=== PATIENT | female | born 1995 | race Caucasian/White ===

== ENCOUNTER 2016-09-22 10:06 | Emergency (ER) | payer OTHER ==
[2016-09-22] MEDS ORDERED: HYDROmorphone 1 MG/ML Syringe IM ONE (11:21)
[2016-09-22] MEDS ORDERED: Ondansetron 4 MG Tab.DIS PO ONE (12:03)
--- NOTE | 2016-09-22 12:27 | EDM.PDOC ---
[id number]: OVARIAN CYST? Time Seen by Provider: 09/22/16 10:30 Source of Information: Reports: Patient, Family History Limitations: Reports: No Limitations - History of Present Illness INITIAL COMMENTS - FREE TEXT/NARRATIVE: 20-year-old female with sudden onset of right lower quadrant pain within the last 2-3 hours. Seems to be settling down now. She has a history of ovarian cysts, pain feel similar to past episodes. No fevers or chills. Some nausea, no radiation of pain. She's been on control for the last 3 years to suppress ovarian cysts but was off the pills for about 6 months prior to starting in 2 months ago. She does not feel she is . Onset: Sudden Duration: Hour(s): (Symptoms for the past 1-2 hours) Location: Reports: Abdomen Quality: Reports: Sharp, Stabbing Severity: Moderate Associated Symptoms: Denies: Fever/Chills, Shortness of Breath Right Lower Abdominal Pain Score (Numeric/FACES): 3 - Related Data Allergies Allergy/AdvReac Type Severity Reaction Status Date / Time No Known Allergies Allergy Verified 09/22/16 10:24 Home Meds: Home Meds Norgestimate-Ethinyl Estradiol [Estarylla 0.25-0.035 mg Tablet] 1 tab PO DAILY 09/22/16 [History] Past Medical History Other OB/BYN History: REMOVAL OF CYST FROM [place] [facility]UBE - Past Surgical History HEENT Surgical History: Reports: Oral Surgery Social & Family History - Tobacco Use Smoking Status *Q: Unknown Ever Smoked ED ROS GENERAL - Review of Systems Review Of Systems: See Below Constitutional: Denies: Fever, Chills, Malaise HEENT: Reports: No Symptoms Respiratory: Denies: Shortness of Breath Cardiovascular: Denies: Chest Pain GI/Abdominal: Reports: Abdominal Pain, Nausea. Denies: Diarrhea, Vomiting Skin: Reports: No Symptoms Neurological: Reports: No Symptoms ED EXAM, GI/ABD - Physical Exam Exam: See Below Exam Limited By: No Limitations General Appearance: Alert, Mild Distress (Patient appears uncomfortable) Eyes: Bilateral: Normal Appearance Respiratory/Chest: No Respiratory Distress, Lungs Clear Cardiovascular: Regular Rate, Rhythm GI/Abdominal Exam: Soft, Guarding, Tender, Other (Some referred pain to the right lower quadrant but no significant peritonitis). No: Rebound Neurological: Alert, Oriented Psychiatric: Normal Affect, Normal Mood Skin Exam: Warm, Dry Course - Vital Signs Last Recorded V/S: Last Vital Signs Temp 96.3 F 09/22/16 14:44 Pulse 78 09/22/16 14:02 Resp 15 09/22/16 14:44 BP 111/63 09/22/16 14:44 Pulse Ox 99 09/22/16 14:44 - Orders/Labs/Meds Labs: Laboratory Tests 09/22/16 09/22/16 09/22/16 Range/Units 11:39 11:39 11:39 WBC 4.0 L (4.5-11.0) K/uL RBC 4.70 (3.30-5.50) M/uL Hgb 14.2 (12.0-15.0) g/dL Hct 40.8 (36.0-48.0) % MCV 87 (80-98) fL MCH 30 (27-31) pg MCHC 35 (32-36) % Plt Count 190 (150-400) K/uL Neut % (Auto) 42 (36-66) % Lymph % (Auto) 45 H (24-44) % Graves % (Auto) 8 H (2-6) % Eos % (Auto) 2 (2-4) % Baso % (Auto) 4 H (0-1) % Sodium 140 (140-148) mmol/L Potassium 4.6 (3.6-5.2) mmol/L Chloride 106 (100-108) mmol/L Carbon Dioxide 29 (21-32) mmol/L Anion Gap 5.5 (5.0-14.0) mmol/L BUN 6 L (7-18) mg/dL Creatinine 0.8 (0.6-1.0) mg/dL Est Cr Clr Drug Dosing 100.94 mL/min Estimated GFR (MDRD) > 60 (>60) Glucose 91 (74-106) mg/dL Calcium 8.3 L (8.5-10.1) mg/dL C-Reactive Protein 0.07 (0.0-0.3) mg/dL Urine Color Urine Appearance Urine pH (4.5-8.0) Ur Specific [place] (1.008-1.030) Urine Protein (NEGATIVE) mg/dL Urine Glucose (UA) (NEGATIVE) mg/dL Urine Ketones (NEGATIVE) mg/dL Urine Occult Blood (NEGATIVE) Urine Nitrite (NEGATIVE) Urine Bilirubin (NEGATIVE) Urine Urobilinogen (NORMAL) mg/dL Ur Leukocyte Esterase (NEGATIVE) Urine RBC (0-5) Urine WBC (0-5) Ur Epithelial Cells Amorphous Sediment Urine Bacteria Urine Mucus Urine HCG, Qual 09/22/16 09/22/16 Range/Units 12:41 12:41 WBC (4.5-11.0) K/uL RBC (3.30-5.50) M/uL Hgb (12.0-15.0) g/dL Hct (36.0-48.0) % MCV (80-98) fL MCH (27-31) pg MCHC (32-36) % Plt Count (150-400) K/uL Neut % (Auto) (36-66) % Lymph % (Auto) (24-44) % Graves % (Auto) (2-6) % Eos % (Auto) (2-4) % Baso % (Auto) (0-1) % Sodium (140-148) mmol/L Potassium (3.6-5.2) mmol/L Chloride (100-108) mmol/L Carbon Dioxide (21-32) mmol/L Anion Gap (5.0-14.0) mmol/L BUN (7-18) mg/dL Creatinine (0.6-1.0) mg/dL Est Cr Clr Drug Dosing mL/min Estimated GFR (MDRD) (>60) Glucose (74-106) mg/dL Calcium (8.5-10.1) mg/dL C-Reactive Protein (0.0-0.3) mg/dL Urine Color Yellow Urine Appearance Clear Urine pH 9.0 H (4.5-8.0) Ur Specific [place] 1.015 (1.008-1.030) Urine Protein Negative (NEGATIVE) mg/dL Urine Glucose (UA) Normal (NEGATIVE) mg/dL Urine Ketones Negative (NEGATIVE) mg/dL Urine Occult Blood Negative (NEGATIVE) Urine Nitrite Negative (NEGATIVE) Urine Bilirubin Negative (NEGATIVE) Urine Urobilinogen Normal (NORMAL) mg/dL Ur Leukocyte Esterase Negative (NEGATIVE) Urine RBC 0-5 (0-5) Urine WBC 0-5 (0-5) Ur Epithelial Cells Few Amorphous Sediment Not seen Urine Bacteria Few Urine Mucus Not seen Urine HCG, Qual Negative Meds: Medications Discontinued Medications Generic Name Dose Route Start Last Admin Trade Name Felix PRN Reason Stop Dose Admin Hydromorphone HCl 1 mg 09/22/16 11:21 09/22/16 11:30 Dilaudid IM 09/22/16 11:22 1 mg ONETIME ONE Administration Sodium Chloride 1,000 mls @ 1,000 mls/hr 09/22/16 13:30 09/22/16 13:34 Normal Saline IV 1,000 mls/hr ASDIRECTED ARMANDO Administration Ketorolac Tromethamine 30 mg 09/22/16 13:16 09/22/16 13:34 Toradol IVPUSH 09/22/16 13:17 30 mg ONETIME ONE Administration Ondansetron HCl 4 mg 09/22/16 12:03 09/22/16 12:07 Zofran Odt PO 09/22/16 12:04 4 mg ONETIME ONE Administration Ondansetron HCl 4 mg 09/22/16 13:16 09/22/16 13:34 Zofran IVPUSH 09/22/16 13:17 4 mg ONETIME ONE Administration - Re-Assessments/Exams Free Text/Narrative Re-Assessment/Exam: 09/22/16 12:34 CBC BMP and CRP were obtained and were all reassuring, white count was 4000 and CRP was normal. A UA had to be obtained by quick catheter as the patient was unable to urinate. She was given 1 mg of Dilaudid IM which helped the pain significantly but also cause some nausea and vomiting. 4 mg of sublingual Zofran was given. 09/22/16 14:38 Nausea persisted so an IV was started, patient was given 1000 mL of normal saline, 4 mg of IV Zofran and 30 mg of Toradol. Patient then slept comfortably for the next hour. She was discharged with some by mouth Toradol, 10 total doses and will follow-up when home. Departure - Departure Time of Disposition: 14:49 Disposition: Home, Self-Care 01 Condition: Good Clinical Impression: Ovarian cyst Qualifiers: Laterality: right Qualified Code(s): N83.201 - Unspecified ovarian cyst, right side - Discharge Information Instructions: Ovarian Cyst, [id number] Referrals: PCP,None [Primary Care Provider] - Forms: ED Department Discharge Care Plan Goals: Take one dose of ketorolac every 6-8 hours over the next 3-4 days. Recheck in 2- 3 days if not improving satisfactorily, return anytime if worsening or concerns.
[2016-09-22] MEDS ORDERED: Ketorolac 30 MG/ML SDV IVPUSH ONE (13:16)
[2016-09-22] MEDS ORDERED: Ondansetron 4 MG/2 ML SDV IVPUSH ONE (13:16)
[2016-09-22] MEDS ORDERED: Sodium Chloride 0.9% 1,000 ML IV SCH (13:30)
[2016-09-22 14:45] VITALS: BP 111/63
== END 2016-09-22 14:51 | disposition home or self-care (01) ==
LOC: JP.ED 10:06
DX: N83.201 Unspecified ovarian cyst, right side (principal); Z79.899 Other long term (current) drug therapy; Z98.890 Other specified postprocedural states
CPT/HCPCS: 36415; 80048; 81001; 81025; 85025; 86140; 96361; 96372; 96374; 96375; 99284; A9270; J1170; J1885; J2405; J7040

== ENCOUNTER 2021-08-05 23:40 | Emergency (ER) | payer SELFPAY ==
[2021-08-05 23:54] VITALS: BP 126/76; PULSE 89
== END 2021-08-06 01:43 | disposition home or self-care (01) ==
LOC: JP.ED 23:40
DX: F10.120 Alcohol abuse with intoxication, uncomplicated (principal); F17.210 Nicotine dependence, cigarettes, uncomplicated; Y90.8 Blood alcohol level of 240 mg/100 ml or more
CPT/HCPCS: 36415; 80048; 80307; 85025; 99283; 99284